=== PATIENT | female | born 1965 | race Caucasian/White ===

== ENCOUNTER 2022-12-31 07:46 | Day surgery (SDC) | payer OTHER, SELFPAY ==
[2022-12-31] VITALS (22 sets, daily range): BP systolic 115–138; BP diastolic 67–84; PULSE 65–102; RESP 14–20; TEMP 35.6–37; O2SAT 93–100; BMI 32.6
[2022-12-31] MEDS: 0.9 % SODIUM CHLORIDE 1000 ml 1,000 ML IV (08:32)
[2022-12-31] MEDS: ONDANSETRON 2 MG/ML inj 4 MG IVP (08:37)
[2022-12-31 08:38] LABS: Lactate* 1.8 mmol/L (0.5-1.9)
[2022-12-31] MEDS: MORPHINE 4 MG/ML INJ IVP (08:39)
[2022-12-31 08:40] LABS: Basophils Percent Auto 0.1 % (0.0-3.0); Eosinophils Percent Auto 0.1 % (0.0-7.0); Hemoglobin* 15.1 gm/dL (12.0-16.0); Immature Granulocytes Pct Auto 0.2 %; Lymphocytes Percent Auto 6.9 % (20-44); Mean Corpuscular HGB Conc 34 gm/dL (32-36); Mean Corpuscular Hemoglobin 32 pg (26-34); Mean Corpuscular Volume 94 fL (80-100); Monocytes Percent Auto 4.3 % (0.0-11.0); Neutrophils Percent Auto 88.4 % (42.0-72.0); Platelet Count* 274 K/uL (140-440); RDW Coefficient of Variation % 12.9 % (11.5-15.5); Red Blood Count 4.68 m/uL (4.00-5.20)
[2022-12-31] MEDS: KETOROLAC 15 MG/ML inj IVP (08:40)
[2022-12-31 08:47] LABS: Slide Review Reflex No
--- NOTE | 2022-12-31 08:49 | CRLHL7_ITS ---
For Patients: As a result of the Century Cures Act, medical imaging exams and procedure reports are released immediately into your electronic medical record. You may view this report before your referring provider. If you have questions, please contact your health care provider. INDICATION: abdominal pain COMPARISON: none TECHNIQUE: Real time kwong scale imaging and color Doppler analysis was performed of the right upper quadrant. FINDINGS: The patient`s liver is of normal size and has coarsened and increased echogenicity. The aorta and IVC are difficult to visualize due to overlying bowel gas. There is no evidence of ascites. Echogenic stones are present within the gallbladder lumen. The gallbladder wall measures 2 mm in thickness. The common bile duct is of normal size and measures 6 mm in diameter at the level of the christo hepatis. The visualized pancreas appears normal. There is no evidence of a stone or hydronephrosis within the right kidney. The right kidney measures 10.0 cm in length. IMPRESSION: Diffusely coarsened and echogenic liver parenchyma consistent with chronic liver disease such as hepatic steatosis. Distended gallbladder with multiple small nonmobile stones lodged in the gallbladder neck along with mild edematous changes suspected in the adjacent liver, concerning for cholecystitis. Positive sonographic Guzman sign is also present. Dictated by Jose Walton MD @ 12/31/2022 9:51:56 AM (Electronically Signed)
--- NOTE | 2022-12-31 08:56 | ED_ITS ---
HPI - General Adult General Date Seen: 12/31/22 Chief complaint: Abdominal Pain Stated complaint: abdominal pain, vomiting Time Seen by Provider: 12/31/22 08:01 Source: patient Mode of arrival: ambulatory Limitations: no limitations History of Present Illness HPI narrative: Patient is a 57-year-old woman who presents for evaluation of severe upper abdominal pain associated with vomiting. This started approximately 11 hours prior to arrival in the ER and has been constant. She is not able to get comfortable. She does describe 2 previous similar episodes in the past month the both resolved within several hours. This episode is not getting better. She denies urinary symptoms, fever, diarrhea, black or bloody stools. No difficulty breathing or chest pain. No prior abdominal surgeries. Describes good general health, denies alcohol or tobacco use. Here today with her . Related Data Previous Rx's Medication Instructions Recorded hydrocodone 5 mg-acetaminophen 325 1 tab PO Q6H PRN pain #25 tabs 12/31/22 mg tablet Allergies Allergy/AdvReac Type Severity Reaction Status Date / Time Penicillins Allergy Verified 12/31/22 08:03 Review of Systems Status of ROS: Reports: 10 or more systems reviewed and unremarkable except as noted in History and below PFSH [facility] Medical History (Updated 12/31/22 @ 11:24 by Danielle Temple MD) H/O Graves' disease ?Z86.39 - Personal history of other endocrine, nutritional and metabolic disease (ICD-10) Surgical History (Updated 12/31/22 @ 10:28 by Benny Diop MD) History of bladder suspension procedure ?Z98.890 - Other specified postprocedural states (ICD-10) ?Z87.448 - Personal history of other diseases of urinary system (ICD-10) H/O tubal ligation ?Z98.51 - Tubal ligation status (ICD-10) H/O arthroscopic knee surgery ?Z98.890 - Other specified postprocedural states (ICD-10) H/O: hysterectomy ?Z90.710 - Acquired absence of both cervix and uterus (ICD-10) Social History (Updated 12/31/22 @ 10:29 by Benny Diop MD) Narrative: Patient works for [employer] in [place]. Smoking Status: Former smoker Do you use any of these nicotine containing products: None Second hand tobacco smoke exposure: No How often do you have a drink containing alcohol: monthly or less How many standard drinks containing alcohol do you have on a typical day: 1 or 2 How often do you have six or more drinks on one occasion: Never AUDIT-C Alcohol total score: 1 Non-prescribed substance use: denies use service: No Exam Narrative: Exam Narrative: Vital signs as noted above. In general, an alert, nontoxic woman, she looks uncomfortable. Head: Normocephalic, atraumatic. Eyes: Pupils are equal reactive. Extraocular movements are full. Conjunctivae are normal. No scleral icterus. ENT: Mucous membranes are moist. Neck: Supple without lymphadenopathy. Heart: Regular rate and rhythm. No murmur or rub. Lungs: Clear bilaterally. No increased work of breathing, crackles or wheezes. Abdomen: Soft and nondistended. Epigastric and right upper quadrant tenderness with some voluntary guarding, positive Guzman's. Extremities: Well perfused. No edema. No calf tenderness. Pulses intact. Neurologic: Patient is alert and oriented to person and place. Speech is fluent. Face is symmetric. Moves all extremities equally. Affect: Normal. Skin: Warm and dry. Well perfused. Const: Vital Signs, click to edit/add: Vital Signs - 24 hr 12/31/22 08:03 12/31/22 08:54 12/31/22 09:00 Temperature 96.1 F L Pulse Rate 87 75 Pulse Rate [Pulse Oximeter] 95 Respiratory Rate 20 Blood Pressure Blood Pressure [Ri ght Forearm] 129/67 Pulse Oximetry 97 93 99 Oxygen Delivery Me od Room Air 12/31/22 09:00 12/31/22 09:02 12/31/22 09:03 Temperature Pulse Rate 75 73 Pulse Rate [Pulse Oximeter] Respiratory Rate Blood Pressure 129/82 Blood Pressure [Ri ght Forearm] Pulse Oximetry 100 99 100 Oxygen Delivery Pa thod 12/31/22 09:11 12/31/22 09:24 12/31/22 09:30 Temperature Pulse Rate 77 77 Pulse Rate [Pulse Oximeter] Respiratory Rate Blood Pressure Blood Pressure [Ri ght Forearm] Pulse Oximetry 98 100 97 Oxygen Delivery Pa thod 12/31/22 09:31 12/31/22 09:45 12/31/22 10:25 Temperature Pulse Rate 80 93 100 Pulse Rate [Pulse Oximeter] Respiratory Rate Blood Pressure 138/84 Blood Pressure [Ri ght Forearm] Pulse Oximetry 97 95 Oxygen Delivery Me thod 12/31/22 10:29 12/31/22 10:30 Temperature Pulse Rate 102 H 96 Pulse Rate [Pulse Oximeter] Respiratory Rate Blood Pressure 137/82 Blood Pressure [Ri ght Forearm] Pulse Oximetry 96 95 Oxygen Delivery Me thod Documenting provider has reviewed patient's vital signs: yes Course Course Hospital Course: I initially ordered an IV, Toradol, morphine, Zofran and IV fluids. I looked with the bedside ultrasound and noted gallstones, question of a tiny bit of pericholecystic fluid. Labs are pending, formal right upper quadrant ultrasound is ordered. Diagnostic considerations include biliary colic, cholecystitis, ascending cholangitis, pancreatitis, urinary tract infection or pyelonephritis, colitis, diverticulitis, peptic ulcer disease, perforated viscus among others. At this time I suspect cholecystitis. Formal right upper quadrant ultrasound read as follows:IMPRESSION: Diffusely coarsened and echogenic liver parenchyma consistent with chronic liver disease such as hepatic steatosis. Distended gallbladder with multiple small nonmobile stones lodged in the gallbladder neck along with mild edematous changes suspected in the adjacent liver, concerning for cholecystitis. Positive sonographic Guzman sign is also present. Labs notable for an elevated white blood cell count of 14, normal lactate and CRP. LFTs are pretty unremarkable, ALT is 53, AST bilirubin and alk-phos are normal. Urinalysis is still pending. Lipase is normal at 25. I do think this represents cholecystitis both clinically and radiographically. Pain is improved at this time. I have ordered imipenem given her penicillin allergy and case is discussed with general surgery with their consult pending. Vital Signs Vital signs: Initial Vital Signs Temperature 96.1 F L 12/31/22 08:03 Temperature Source Temporal Artery Scan 12/31/22 08:03 Pulse Rate 95 12/31/22 08:03 Pulse Rhythm Regular 12/31/22 08:03 Respiratory Rate 20 12/31/22 08:03 Blood Pressure 129/67 12/31/22 08:03 Blood Pressure Mean 87 12/31/22 08:03 Blood Pressure Position Supine 12/31/22 08:03 Pulse Oximetry 97 12/31/22 08:03 Oxygen Delivery Method Room Air 12/31/22 08:03 Vital Signs Temperature 96.1 F L 12/31/22 08:03 Pulse Rate 95 12/31/22 08:03 Respiratory Rate 20 12/31/22 08:03 Blood Pressure 129/67 12/31/22 08:03 Pulse Oximetry 97 12/31/22 08:03 Oxygen Delivery Method Room Air 12/31/22 08:03 Temperature 96.1 F L 12/31/22 08:03 Pulse Rate 96 12/31/22 10:30 Respiratory Rate 20 12/31/22 08:03 Blood Pressure 137/82 12/31/22 10:29 Pulse Oximetry 95 12/31/22 10:30 Oxygen Delivery Method Room Air 12/31/22 08:03 Medical Decision Making Lab Data Labs: Lab Results 12/31/22 12/31/22 Range/Units 08:30 09:50 WBC 14.30 H (4.50-11.00) K/uL RBC 4.68 (4.00-5.20) m/uL Hgb 15.1 (12.0-16.0) gm/dL Hct 44.0 (33.0-51.0) % MCV 94 (80-100) fL MCH 32 (26-34) pg MCHC 34 (32-36) gm/dL RDW Coeff of Isaura 12.9 (11.5-15.5) % Plt Count 274 (140-440) K/uL Neut % (Auto) 88.4 H (42.0-72.0) % Lymph % (Auto) 6.9 L (20-44) % [place] % (Auto) 4.3 (0.0-11.0) % Eos % (Auto) 0.1 (0.0-7.0) % Baso % (Auto) 0.1 (0.0-3.0) % Neut # (Auto) 12.60 H (1.7-7.0) K/uL Lymph # (Auto) 1.00 (0.90-2.90) K/uL [place] # (Auto) 0.60 (0.00-0.90) K/UL Eos # (Auto) 0.00 (0.00-0.50) K/uL Baso # (Auto) 0.00 (0.00-0.30) K/uL Sodium 135 (135-149) mmol/L Potassium 4.4 (3.6-5.1) mmol/L Chloride 102 (96-114) mmol/L Carbon Dioxide 22 (20-32) mmol/L BUN 13 (7-30) mg/dL Creatinine 0.8 (0.5-1.5) mg/dL Estimated Creat Clear 67.00 Estimated GFR 86 ml/min Glucose 143 H (60-115) mg/dL Lactate 1.8 (0.5-1.9) mmol/L Calcium 9.5 (8.4-10.6) mg/dL Total Bilirubin 0.9 (0.1-1.5) mg/dL Direct Bilirubin 0.1 (0.0-0.5) mg/dL AST 34 (12-35) U/L ALT 53 H (4-35) U/L Alkaline Phosphatase 95 (40-150) U/L C-Reactive Protein 0.6 (0.5-1.0) mg/dL Total Protein 7.8 (6.0-8.3) g/dL Albumin 4.6 (3.3-5.0) g/dL Lipase 25 (23-300) U/L Urine Color Yellow (Yellow) Urine Appearance Clear (Clear) Urine pH 7.0 (5.0-8.5) Ur Specific Marston 1.015 (1.000-1.030) Urine Protein Negative (Negative) Urine Glucose (UA) Negative (Negative) Urine Ketones 1+ A (Negative) Urine Blood Negative (Negative) Urine Nitrite Negative (Negative) Urine Bilirubin Negative (Negative) Urine Urobilinogen 0.2 (0.2-1.0) Ur Leukocyte Esterase Negative (Negative) Urine RBC 0-2 (0-2) Urine WBC 0-2 (0-5) Ur Squamous Epith Cells Few (None-Few) Urine Bacteria Few A (None) POC Troponin I 0.00 L (0.01-0.04) ng/ml Discharge Plan Discharge Clinical Impression: Acute cholecystitis Patient Disposition: Admitted As Inpatient Condition: Improved Activity Level: No strenuous activity Activity Detail: No strenuous activity or lifting more than 15-20 lbs for 4-6 weeks. Discharge Diet: Regular
[2022-12-31 08:58] LABS: Albumin* 4.6 g/dL (3.3-5.0); Chloride* 102 mmol/L (96-114); Sodium* 135 mmol/L (135-149)
[2022-12-31 08:59] LABS: Potassium* 4.4 mmol/L (3.6-5.1)
[2022-12-31 09:01] LABS: Creatinine* 0.8 mg/dL (0.5-1.5); Estimated Glomerular Filt Rate 86 ml/min
[2022-12-31 09:02] LABS: Alanine Aminotransferase* 53 U/L (4-35); Alkaline Phosphatase* 95 U/L (40-150); Aspartate Amino Transferase* 34 U/L (12-35); Bilirubin Direct* 0.1 mg/dL (0.0-0.5); Bilirubin Total* 0.9 mg/dL (0.1-1.5); Blood Urea Nitrogen* 13 mg/dL (7-30); Calcium* 9.5 mg/dL (8.4-10.6); Carbon Dioxide* 22 mmol/L (20-32); Glucose* 143 mg/dL (60-115); Lipase* 25 U/L (23-300); Total Protein* 7.8 g/dL (6.0-8.3)
[2022-12-31 09:05] LABS: C Reactive Protein* 0.6 mg/dL (0.5-1.0)
[2022-12-31 10:05] LABS: Appearance Urine Clear (Clear); Bilirubin Urine Negative (Negative); Blood Urine Negative (Negative); Color Urine Yellow (Yellow); Glucose Urine Negative (Negative); Ketones Urine 1+ (Negative); Leukocyte Esterase Urine Negative (Negative); Nitrite Urine Negative (Negative); Protein Urine Negative (Negative); Specific Gravity Urine 1.015 (1.000-1.030); Urobilinogen Urine 0.2 (0.2-1.0)
[2022-12-31 10:19] LABS: Bacteria Urine Few; RBC Urine 0-2 (0-2); Squamous Epithelial Cell Urine Few (None-Few); WBC Urine 0-2 (0-5)
--- NOTE | 2022-12-31 10:23 | P.GSCN_ITS ---
History of Present Illness Consult details Date Seen: 12/31/22 Consult date: 12/31/22 Narrative: 57-year-old female presented to emergency room with epigastric pain and I was asked by Dr. Gonzales to see her in consultation. Patient states that last night around 9:30 p.m. she started to experience epigastric pain. The pain was described as ?it hurts?. She compares that to labor pains. Patient had a chicken salad for dinner. She had vomiting. She denied shortness of breath. Patient had 2 similar episodes in the past that did not last as long. She cannot recall how the previous episodes started or what made the pain worse. In the emergency room she was found to have an elevated WBC of 14. Her liver function tests were normal with the exception of ALT of 53. Her lipase was normal. Her hemoglobin was 15. An ultrasound of her gallbladder was obtained that showed cholelithiasis, the gallbladder wall was 2 mm thick but there was pericholecystic fluid. The common bile duct was measured at 6 mm. Review of Systems Narrative: General: no fevers HENT: no problems swallowing CV: no shortness of breath Resp: no cough GI: See above Skin: no new rashes Musculoskeletal: no back pain Neuro: no muscle weakness PFSH PFSH Medical History (Updated 12/31/22 @ 10:29 by Benny Diop MD) H/O Graves' disease ?Z86.39 - Personal history of other endocrine, nutritional and metabolic disease (ICD-10) Surgical History (Updated 12/31/22 @ 10:28 by Benny Diop MD) History of bladder suspension procedure ?Z98.890 - Other specified postprocedural states (ICD-10) ?Z87.448 - Personal history of other diseases of urinary system (ICD-10) H/O tubal ligation ?Z98.51 - Tubal ligation status (ICD-10) H/O arthroscopic knee surgery ?Z98.890 - Other specified postprocedural states (ICD-10) H/O: hysterectomy ?Z90.710 - Acquired absence of both cervix and uterus (ICD-10) Social History (Updated 12/31/22 @ 10:29 by Benny Diop MD) Narrative: Patient works for [email or web address] in [employer]. Smoking Status: Former smoker Do you use any of these nicotine containing products: None Second hand tobacco smoke exposure: No How often do you have a drink containing alcohol: monthly or less How many standard drinks containing alcohol do you have on a typical day: 1 or 2 How often do you have six or more drinks on one occasion: Never AUDIT-C Alcohol total score: 1 Non-prescribed substance use: denies use service: No Meds Home Medications and Allergies Allergies Allergy/AdvReac Type Severity Reaction Status Date / Time Penicillins Allergy Verified 12/31/22 08:03 Exam Narrative: Exam Narrative: General appearance: Alert, cooperative, and in no distress Pulmonary: Chest symmetric, lungs clear bilaterally Cardiovascular Heart: Regular rate and rhythm, S1, S2, no murmurs/rubs/gallops Gastrointestinal Abdominal: soft, not distended, tender to palpation in epigastrium and right upper quadrant with positive Guzman side. Skin: Normal skin color, texture, and turgor. No rashes or lesions. Psychiatric: Alert, cooperative, normal affect. Const: Vital Signs, click to edit/add: Vital Signs - 24 hr 12/31/22 08:03 12/31/22 08:54 12/31/22 09:00 Temperature 96.1 F L Pulse Rate 87 75 Pulse Rate [Pulse Oximeter] 95 Respiratory Rate 20 Blood Pressure Blood Pressure [Ri ght Forearm] 129/67 Pulse Oximetry 97 93 99 Oxygen Delivery Me thod Room Air 12/31/22 09:00 12/31/22 09:02 12/31/22 09:03 Temperature Pulse Rate 75 73 Pulse Rate [Pulse Oximeter] Respiratory Rate Blood Pressure 129/82 Blood Pressure [Ri ght Forearm] Pulse Oximetry 100 99 100 Oxygen Delivery Me thod 12/31/22 09:24 12/31/22 09:30 12/31/22 09:31 Temperature Pulse Rate 77 77 80 Pulse Rate [Pulse Oximeter] Respiratory Rate Blood Pressure 138/84 Blood Pressure [Ri ght Forearm] Pulse Oximetry 100 97 97 Oxygen Delivery Me thod 12/31/22 09:45 Temperature Pulse Rate 93 Pulse Rate [Pulse Oximeter] Respiratory Rate Blood Pressure Blood Pressure [Ri ght Forearm] Pulse Oximetry 89 Oxygen Delivery Me thod Results Labs Labs: Abnormal lab results 12/31/22 12/31/22 Range/Units 08:30 09:50 WBC 14.30 H (4.50-11.00) K/uL Neut % (Auto) 88.4 H (42.0-72.0) % Lymph % (Auto) 6.9 L (20-44) % Neut # (Auto) 12.60 H (1.7-7.0) K/uL Glucose 143 H (60-115) mg/dL ALT 53 H (4-35) U/L Urine Ketones 1+ A (Negative) Urine Bacteria Few A (None) POC Troponin I 0.00 L (0.01-0.04) ng/ml Diabetes panel 12/31/22 Range/Units 08:30 Sodium 135 (135-149) mmol/L Potassium 4.4 (3.6-5.1) mmol/L Chloride 102 (96-114) mmol/L Carbon Dioxide 22 (20-32) mmol/L BUN 13 (7-30) mg/dL Creatinine 0.8 (0.5-1.5) mg/dL Glucose 143 H (60-115) mg/dL Calcium 9.5 (8.4-10.6) mg/dL AST 34 (12-35) U/L ALT 53 H (4-35) U/L Alkaline Phosphatase 95 (40-150) U/L Total Protein 7.8 (6.0-8.3) g/dL Albumin 4.6 (3.3-5.0) g/dL Calcium panel 12/31/22 Range/Units 08:30 Calcium 9.5 (8.4-10.6) mg/dL Albumin 4.6 (3.3-5.0) g/dL Pituitary panel 12/31/22 Range/Units 08:30 Sodium 135 (135-149) mmol/L Potassium 4.4 (3.6-5.1) mmol/L Chloride 102 (96-114) mmol/L Carbon Dioxide 22 (20-32) mmol/L BUN 13 (7-30) mg/dL Creatinine 0.8 (0.5-1.5) mg/dL Glucose 143 H (60-115) mg/dL Calcium 9.5 (8.4-10.6) mg/dL Adrenal panel 12/31/22 Range/Units 08:30 Sodium 135 (135-149) mmol/L Potassium 4.4 (3.6-5.1) mmol/L Chloride 102 (96-114) mmol/L Carbon Dioxide 22 (20-32) mmol/L BUN 13 (7-30) mg/dL Creatinine 0.8 (0.5-1.5) mg/dL Glucose 143 H (60-115) mg/dL Calcium 9.5 (8.4-10.6) mg/dL Total Bilirubin 0.9 (0.1-1.5) mg/dL AST 34 (12-35) U/L ALT 53 H (4-35) U/L Alkaline Phosphatase 95 (40-150) U/L Total Protein 7.8 (6.0-8.3) g/dL Albumin 4.6 (3.3-5.0) g/dL All other labs normal. Assessment and Plan Assessment and plan (1) Cholecystitis, acute: Status: Acute Plan 57-year-old female presented with epigastric abdominal pain that is most likely due to acute cholecystitis. I discussed with the patient and her my clinical findings, her laboratory and imaging findings. Patient has an elevated WBC with normal liver function tests. Her ultrasound shows pericholecystic edema that is suggestive of acute cholecystitis. On clinical exam patient has positive Guzman sign. I recommended to proceed with laparoscopic cholecystectomy. The procedure was discussed in detail. The risks associated procedure including infection, bleeding, injury to intra-abdominal organs, and injury to the common bile duct were all discussed with the patient, and she agreed to proceed.
[2022-12-31] MEDS: SCOPOLAMINE 1 MG/3 DAY PATCH 1 PATCH TRANSDERMA (10:39)
--- NOTE | 2022-12-31 10:39 | W.ANESCHARGE ---
Anesthesia Charges Start Date/Time Anesthesia Start Date: 12/31/22 Anesthesia Start Time: 10:51 Stop Date/Time Anesthesia Stop Date: 12/31/22 Anesthesia Stop Time: 12:31 Summary Emergency: MDA
--- NOTE | 2022-12-31 10:44 | P.GSOP_ITS ---
Operative Note Date of procedure: 12/31/22 Pre-op diagnosis: 1. Biliary colic. 2. Acute cholecystitis. Post-op diagnosis: Same Type of Procedure: 1. Laparoscopic cholecystectomy. Indications: 57-year-old female presented to emergency room with right upper quadrant abdominal pain that started last night. Patient also had vomiting. She had similar episodes of pain in the past that was spontaneously resolved. However, this time her pain did not resolve, and patient presented to the emergency room. In the emergency room patient was found to have an elevated WBC of 14. Her liver function tests were normal with the exception of ALT of 53. A gallbladder ultrasound was obtained that showed gallbladder wall of 2 mm with cholelithiasis. There was evidence of pericholecystic fluid. Common bile duct was 6 mm. On clinical exam patient had tenderness to palpation in epigastrium and right upper quadrant with positive Guzman sign. Given patient's clinical h istory and her physical exam, acute cholecystitis was suspected, and laparoscopic cholecystectomy was recommended. The procedure was discussed in detail. The risks associated procedure including infection, bleeding, and injury to intra-abdominal organs, as well as injury to the common bile duct were all discussed with the patient, and she agreed to proceed. Procedure Description: After discussing the risks and benefits of the procedure, the patient signed informed consent.? The operative site was marked and the patient was brought to the operating room and placed on the operating table in supine position.? Care was taken to pad the patient's pressure points.?? The patient was then intubated by anesthesia.?? The operative site was then prepped and draped in the usual sterile fashion.? A time-out was then performed. A 5-mm laparoscopy port was placed in the left upper quadrant guided by a 5-mm laparoscope placed into a translucent trochar.~ Passage through the layers of the abdominal wall was visualized with the laparoscope.~ A pneumoperitoneum was established. A 0-degree 5-mm laparoscope was advanced into the abdomen. The abdomen was briefly surveyed, and no adhesions were noted. A 10-mm port were placed infraumbilically and two more 5 mm ports were placed on the right under direct visualization by laparoscope. The camera was then changed to 10 mm 30- degree scope and placed into the abdomen through the 10 mm port. The left upper quadrant port entrance was examined and no injury to intra-abdominal organs was identified. The gallbladder was identified. The liver was fatty. The gallbladder was distended and taut. I used a laparoscopic needle to decompress the gallbladder. 30 mL of bile was suctioned out. The fundus was grasped and retracted cephalad. The infundibulum was grasped and retracted laterally, exposing the peritoneum overlying the triangle of Calot. This was then divided and exposed in a blunt fashion and with hook cautery. Common bile duct was not identified but care was taken not to injure it. The cystic duct was clearly identified and bluntly dissected circumferentially. The cystic artery appears to be posterior to the cystic duct. The cystic duct was then clipped with 2 5 mm clips on the patient's side and a single clip on the specimen side and divided with scissors. The cystic artery was very small and posterior to the cystic duct. This was circumferentially dissected bluntly. It was clearly going into the posterior gallbladder. The cystic artery was controlled with 5 mm clips on the patient's side and the specimen side and divided with scissors. The gallbladder was dissected from the liver bed in retrograde fashion using hookcautery. There was moderate amount of edema noted in the gallbladder wall. When the gallbladder was dissected free from the liver, it was placed into an Endo-Catch bag and removed through the infraumbilical incision. Surgical site was examined for bleeding. No bleeding was seen in the surgical field. The fascia of the infraumbilical incision was then closed with 2 figure of 8 0-0 vicryl sutures. The closure site was examined intra-abdominally, and no intra- abdominal structures were incarcerated in the closure. Pneumoperitoneum was completely reduced after viewing removal of the trocars under direct vision. The skin was then closed with 4-0 monocryl and steristrips were applied. Instrument, sponge, and needle counts were correct at closure and at the conclusion of the case. The patient was transferred to PACU in stable condition. Findings: Acute cholecystitis. Anesthesia: GETA Surgeon: Benny Diop MD Estimated blood loss (mL): 5 Specimen: Gallbladder Condition: stable Disposition: PACU
--- NOTE | 2022-12-31 10:48 | ED.NURSE ---
to or via w/c. did hang 1000 ns and was up to br to void. did not give iv antibiotic per request of dr kern as this will be given in the OR.
[2022-12-31] MEDS: CEFAZOLIN 2 GM INJ IVP (11:02)
[2022-12-31] MEDS: BUPIVACAINE 0.5% 30 ML INJECTION (11:12)
--- NOTE | 2022-12-31 12:36 | P.ANES_ITS ---
Anesthesia Charges Start Date/Time Anesthesia Start Date: 12/31/22 Anesthesia Start Time: 10:51 Stop Date/Time Anesthesia Stop Date: 12/31/22 Anesthesia Stop Time: 12:31 Summary Emergency: [employer]
--- NOTE | 2022-12-31 12:59 | SUR.PHASEI ---
INTO PACU WITH 200CC NS. INFUSED 50CC NS IN PHASE 1
--- NOTE | 2022-12-31 14:27 | SUR.PHASEII ---
Patient ready for discharge. VSS IV discontinued with catheter tip intact.
== END 2022-12-31 14:29 | disposition home or self-care (01) ==
LOC: ED 08:31 → SS 10:15
PROVIDERS: Emergency Provider Emergency Medicine; PCP Family Medicine; Visit Provider Surgery
PROC: 0FT44ZZ Resection of Gallbladder, Percutaneous Endoscopic Approach (ICD-10-PCS; CPT 47562; principal; 2022-12-31 11:00)
DX: K80.00 Calculus of gallbladder with acute cholecystitis without obstruction (principal)
CPT/HCPCS: 47562; 00790; 36415; 76705; 80048; 80076; 81001; 83605; 83690; 84484; 85025; 86140; 87086; 88304; 93005; 94761; 99140; 99284; A9270; J0330; J0690; J1100; J1200; J1885; J2250; J2270; J2405; J2704; J2710; J3010; J3490; J7030